=== PATIENT | female | born 1975 | race Caucasian/White ===

== ENCOUNTER 2018-04-20 12:53 | Outpatient (CLI) | payer OTHER ==
[2018-04-20 14:17] LABS: Hemoglobin 14.3 g/dL (12.0-16.0); Mean Corpuscular HGB CONC 34.7 g/dL (32.0-36.0); Mean Corpuscular Hemoglobin 32.4 pg (27.0-31.0); Mean Corpuscular Volume 93.5 fL (78.0-98.0); Mean Platelet Volume 8.3 fL (7.4-10.4); Platelet Count 297 thou/uL (130-400); RBC Distribution Width 10.9 % (11.5-14.5); White Blood Cell (WBC) Count 7.8 thou/uL (4.8-10.8)
[2018-04-20 14:27] LABS: BHCG - Serum Negative (NEGATIVE); Pregs Control Bar Appear? YES (CONTROL BAR)
[2018-04-20 14:28] LABS: Pregs Control Background? CLEAR/WHITE (CLR/WHITE)
== END 2018-04-20 12:54 | disposition home or self-care (01) ==
LOC: LABBT 12:53
PROVIDERS: ATTEND Student in an Organized Health Care Education/Training Program
DX: Z01.812 Encounter for preprocedural laboratory examination (principal); N80.9 Endometriosis, unspecified
CPT/HCPCS: 84703; 85027; 86850; 86900; 86901

== ENCOUNTER 2018-04-24 07:57 | Day surgery (SDC) | payer OTHER ==
[2018-04-20 13:10] VITALS: BMI 23.5
[2018-04-24] MEDS ORDERED: Gabapentin 300 MG CAP ONE (10:11)
[2018-04-24] MEDS ORDERED: CEFAZOLIN 2 GM/50 ML BAG ONE (10:11)
[2018-04-24] MEDS ORDERED: Famotidine/PF 20 mg/2ml Vial ONE (10:12)
[2018-04-24] MEDS ORDERED: CeleCOXIB 100 MG CAP ONE (10:12)
[2018-04-24] MEDS ORDERED: Bupivacaine HCl 0.5%/Epinephrine 1:200,000/PF 30 ml Vial ONE (10:48)
[2018-04-24] MEDS ORDERED: Fentanyl 100 MCG/2 ML VIAL ONE ×2 (10:52)
[2018-04-24] MEDS ORDERED: HYDROcodone/Acetaminophen 5/325 mg Tablet ONE (14:55)
--- NOTE | 2018-04-25 11:29 | OP ---
DATE OF PROCEDURE: 04/24/2018 PREOPERATIVE DIAGNOSES: 1. Endometriosis. 2. Pelvic pain. POSTOPERATIVE DIAGNOSES: 1. Endometriosis. 2. Pelvic pain. PROCEDURES PERFORMED: Robotic-assisted diagnostic laparoscopy, left ovarian cystectomy, excision of endometriosis, lysis of adhesions, chromotubation, diagnostic hysteroscopy, dilatation and curettage, and placement of AmnioFix. RECEPTION SPECIALIST SURGEON: Raimundo Del Rio DO, MS ESTIMATED BLOOD LOSS: 20 mL. IV FLUIDS: 1 L of crystalloid. URINE OUTPUT: 400 mL of clear urine. COMPLICATIONS: None. DRAINS: None. PATHOLOGY: 1. Endometrial curettings. 2. Right uterosacral ligament biopsy. 3. Posterior cul-de-sac biopsies. 4. Left ovarian cyst wall. FINDINGS: 1. On hysteroscopic exam, proliferative endometrium, no intrauterine masses, normal uterine contour with bilateral tubal ostia were visualized. Endocervical canal was within normal limits. The uterus sounded to 10 cm and a hysteroscopy deficit for the case was 190 mL. 2. Pelvic endometriosis. Cystic red lesions as well as darker black lesions on the ovaries. There were approximately 5 of these lesions that were completely resected and sent for final pathology. There were no anterior cul-de-sac endometriotic implants. There were no bowel implants or appendiceal implants as well. 3. Bilateral ovaries adherent to the pelvic sidewall ovarian fossa. 4. Left ovarian endometrioma with the cyst completely excised. 5. Ureteral visualization bilaterally coursing in the pelvis and vermiculating throughout the case and away from the area of dissection. 6. 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 OPERATIVE TECHNIQUE: The patient was taken to the operating room, where general anesthesia was obtained without difficulty. The patient was prepped and draped in a sterile fashion in dorsal lithotomy position. A Ford catheter was placed into the bladder. A speculum was placed in the vagina. The anterior lip of the cervix was grasped with single-tooth tenaculum. The uterus was sounded to 10 cm and was progressively dilated with Cecil dilators. A 5-mm hysteroscope was assembled and primed with normal saline. The hysteroscope was inserted into the uterus. The endometrium appeared proliferative, no intrauterine masses. The contours were within normal limits. Bilateral tubal ostia were visualized and the endocervical canal was normal appearing. The hysteroscope was then removed after photodocumentation performed and sharp curettage was taken to all 4 quadrants of the uterus and sent for final pathology. At that time, the STACIE manipulator with a 6-cm tip was placed into the uterus and the tip balloon was inflated. There was no colpotomizer ring on the manipulator. The Osvaldo was placed in low lithotomy and attention was then turned to the abdomen. A 0.5% Marcaine with epinephrine was infiltrated into the umbilicus and an 8 mm skin incision was made. The Veress needle was passed into the abdomen, noting an opening pressure of 3 mmHg, pneumoperitoneum was obtained without difficulty. The Veress needle was removed in the angle and the 8-mm robotic trocar was advanced into the umbilical incision into the abdomen and confirmed placement with an 8 mm 0-degree robotic camera. Steep Trendelenburg was obtained. Right and left lower quadrant 8-mm ports were placed under direct visualization after infiltrating with 0.5% Marcaine with epinephrine and transilluminating during the skin incision and infiltration to ensure no vascular injury. A right upper quadrant 11 mm surgery assistant port was also placed under direct visualization after infiltrating with . The robot was then docked, the right robotic arm contained monopolar scissors, the left robotic arm contained a fenestrated bipolar. The findings were significant for endometriosis in the posterior pelvis including bilateral pelvic sidewalls and posterior cul-de-sac. The ovaries were densely adherent to the pelvic sidewalls bilaterally. There were 2 physiologic cysts on the right ovary and that appeared to be resolving, these were incised with the scissors and drained after clear fluid, and no active bleeding was present. At that time, decision was made to restore normal anatomy including dissecting, lysing adhesions of the ovaries to the pelvic sidewall. The right ovary was grasped and elevated, and carefully after identifying the course of the ureter, the ovary was dissected off the pelvic sidewall with the scissors and achieving hemostasis with the monopolar scissors also. This was carried around and this did not involve the course of the ureter either until the ovary was completely freed from the sidewall, this took approximately 15 minutes and then the retroperitoneal approach was performed just to ensure visualization of any underlying retroperitoneal structures while dissecting the ovary off. There were several black endometriosis spots on the ovary and these were fulgurated with the monopolar scissors. A rather large endometriotic implant was also noted on right uterosacral ligament and an area margin around this implant over the uterosacral ligament approximately 2 cm was grasped approximately to the uterus and elevated. An incision was made with 2 scissors and a large portion of the uterosacral and right pelvic sidewall peritoneum was dissected out with the use of the scissors, ensuring no underlying pelvic structures by undermining with fenestrating and then tenting up and allowing the pneumoperitoneum to separate the peritoneum off the retroperitoneum and this specimen was once completely removed, hemostasis was achieved with monopolar scissors and this was sent for final pathology. Also, a cleft was identified in the right pelvis and periureteral area, this clefted track along the course of the ureter and did have a deeper red endometriotic implant within it, this implant was grasped, was not involving the actual ureter and was elevated and incised to completely remove the implant. Additional clefts were present in the posterior cul-de-sac also and the scarring surrounding some red cystic implants. Next, the posterior cul-de-sac endometriotic implants were resected with the use of scissors, there were 3 of these implants present and there were all resected with a 0.5 cm margin around this and hemostasis was achieved with a fenestrater. There was no endometriosis visualized on the rectum with the perirectal tissues. The appendix was normal appearing as was the sigmoid colon. At that time, attention was turned to the left ovary. The left ovary did have a dense band of adhesion from the perirectal tissue to the outer rim of the ovary, this was incised to begin freeing up this ovary and was ultimately densely adhered to the pelvis sidewall. The course of the ureter was noted through the pelvis, which did not involve the adhesed area of the ovary to the pelvic sidewall. That ovary was then lifted and elevated and careful dissection with the retroperitoneal approach was taken to remove the adhesions of the ovary to the sidewall with carefully achieving hemostasis with the scissors. At one point, with traction on the ovary, a cyst was ruptured that contained very thick gonzalez material; there was no solidarity in the mass, there was no cystic fluid, this was consistent with an endometrioma. At that time, decision was made to remove the cyst wall. The cyst wall was grasped and after suctioning the cyst contents out, this was easily removed with traction and countertraction and sent for final pathology. The remainder of the ovary was incised off the pelvic sidewall carefully to restore the normal anatomy and hemostasis was again achieved. The dissection of that ovary took an additional 20 minutes. There were additional black pinpoint areas on the left ovary also consistent with small endometriotic implants and these were cauterized with monopolar scissors. Irrigation was performed of the pelvis copiously. At that time, a dilute methylene blue was then injected into the STACIE manipulator and chromotubation was performed. The left fallopian tube spilled immediately of blue dye, the right fallopian tube did not fill dye consistent with a blocked right fallopian tube and this was unable to be cleared up with repositioning of the fallopian tube as well as increased pressure with the methylene blue through the manipulator. This dye was suctioned and after again irrigating the areas, ensuring hemostasis with low pressure check, the AmnioFix 7 x 6 sheath was opened and it was cut into 5 separate pieces, a larger piece was placed over the right ovarian fossa and right uterosacral biopsy area and smaller pieces were placed over the posterior cul-de-sac biopsy area and a larger piece was placed along the left ovarian fossa dissection. At that time, all instruments were removed out of the abdomen. The robot was undocked. The skin was closed with 4-0 Monocryl in a subcuticular fashion. Dermabond was applied. The STACIE manipulator was removed out of the vagina. The cervix was visualized and noted to be hemostatic. All instruments were removed from the vagina, Ford catheter was discontinued prior to leaving the OR. The patient tolerated the procedure well. Sponge and needle counts were correct x2. The patient was taken to recovery room in stable condition. Job ID: [id number]
== END 2018-04-24 17:10 | disposition home or self-care (01) ==
LOC: SDC 07:57
PROVIDERS: ATTEND Student in an Organized Health Care Education/Training Program
PROC: 0UJD8ZZ Inspection of Uterus and Cervix, Via Natural or Artificial Opening Endoscopic (ICD-10-PCS; principal; 2018-04-24)
PROC: 0UDB7ZX Extraction of Endometrium, Via Natural or Artificial Opening, Diagnostic (ICD-10-PCS; principal; 2018-04-24)
PROC: 3E1P88Z Irrigation of Female Reproductive using Irrigating Substance, Via Natural or Artificial Opening Endoscopic (ICD-10-PCS; principal; 2018-04-24)
PROC: 0UB14ZZ Excision of Left Ovary, Percutaneous Endoscopic Approach (ICD-10-PCS; principal; 2018-04-24)
DX: N80.8 Other endometriosis (principal); N83.02 Follicular cyst of left ovary; N80.3 Endometriosis of pelvic peritoneum; N80.1 Endometriosis of ovary; N73.6 Female pelvic peritoneal adhesions (postinfective); Z79.899 Other long term (current) drug therapy
CPT/HCPCS: 88305; 96374; J0131; J0670; J3010; Q9968; S0028